=== PATIENT | male | born 1965 | race Caucasian/White ===

== ENCOUNTER 2022-06-19 07:33 | Emergency (ER) | payer OTHER ==
[~2022-06-19] VITALS: Ht 182.9 cm; Wt 84.1 kg
[~2022-06-19 07:33] MED LIST: OMEP20 PO
[2022-06-19] MEDS ORDERED: CEFTAROLINE 600 MG/D5W 250 ML IV ONE (09:00)
[2022-06-19 09:19] LABS: BASOPHILS % (AUTO) 0.8 % (0.0-2.0); EOSINOPHILS % (AUTO) 1.5 % (1.0-6.0); HEMATOCRIT 43.1 % (41-53); HEMOGLOBIN 14.9 g/dL (13.5-17.5); LYMPHOCYTES # (AUTO) 1.3 K/uL (1.0-4.8); MEAN CORPUSCULAR HEMOGLOBIN 33.2 pg (26.0-34.0); MEAN CORPUSCULAR HGB CONC 34.5 G/dL (31.0-37.0); MEAN CORPUSCULAR VOLUME 96 fL (80-100); MONOCYTES # (AUTO) 0.8 K/uL (0.1-1.0); MONOCYTES % (AUTO) 11.5 % (2.0-9.0); NEUTROPHILS # (AUTO) 4.8 K/uL (1.8-7.7); NEUTROPHILS % (AUTO) 68.2 % (40.0-70.0); PLATELET COUNT (AUTO) 251 K/uL (150-450); RED BLOOD CELL COUNT(AUTO) 4.48 MIL/uL (4.50-5.90); RED CELL DISTRIBUTION WIDTH 13.1 % (11.5-14.5)
[2022-06-19 09:29] LABS: ANION GAP 3 mmol/L (8-16); CALCIUM, TOTAL 9.5 mg/dL (8.8-10.5); CARBON DIOXIDE 31 mmol/L (22-29); CHLORIDE 101 mmol/L (98-107); CREATININE 1.06 mg/dL (0.60-1.30); GLUCOSE,RANDOM 104 mg/dL (70-110); POTASSIUM 3.8 mmol/L (3.5-5.1); SODIUM SERUM 135 mmol/L (136-145); UREA NITROGEN, BLOOD 17 mg/dL (7-18)
[2022-06-19 09:30] LABS: GLOMERULAR FILTR. RATE CALC > 60 mL/min (>60)
[2022-06-19 09:37] LABS: ALANINE AMINOTRANSFERASE 30 U/L (12-78); ALBUMIN 3.8 g/dL (3.4-5.0); ALKALINE PHOSPHATASE 58 U/L (46-116); ASPARTATE AMINOTRANSFERASE 24 U/L (15-37); BILIRUBIN,TOTAL 0.9 mg/dL (0.1-1.0)
[2022-06-19 09:52] VITALS: BP 128/69
[2022-06-19] MEDS ORDERED: SULF-261 PO (10:37)
[2022-06-19] MEDS ORDERED: CEPH-558 PO (10:37)
== END 2022-06-19 10:55 | disposition home or self-care (01) ==
LOC: EMS 07:37
DX: N48.22 Cellulitis of corpus cavernosum and penis (principal); Z98.890 Other specified postprocedural states; Z88.8 Allergy status to other drugs, medicaments and biological substances
CPT/HCPCS: 99283; 96365; 80053; 85025; 36415; J0712

== ENCOUNTER 2024-02-18 20:12 | Emergency (ER) | payer OTHER ==
[~2024-02-18] VITALS: Ht 182.9 cm; Wt 81.8 kg
[~2024-02-18 20:12] MED LIST changes: +CEPH-558 PO; +SULF-261 PO
[2024-02-18 20:19] VITALS: TEMP 97.3
[2024-02-18 22:52] LABS: BASOPHILS % (AUTO) 0.4 % (0.0-2.0); EOSINOPHILS % (AUTO) 2.6 % (1.0-6.0); HEMOGLOBIN 13.4 g/dL (13.5-17.5); LYMPHOCYTES # (AUTO) 1.9 K/uL (1.0-4.8); LYMPHOCYTES % (AUTO) 30.6 % (22.0-44.0); MEAN CORPUSCULAR HEMOGLOBIN 32.3 pg (26.0-34.0); MEAN CORPUSCULAR HGB CONC 33.5 G/dL (31.0-37.0); MEAN CORPUSCULAR VOLUME 97 fL (80-100); MONOCYTES # (AUTO) 0.8 K/uL (0.1-1.0); MONOCYTES % (AUTO) 12.4 % (2.0-9.0); NEUTROPHILS # (AUTO) 3.4 K/uL (1.8-7.7); PLATELET COUNT (AUTO) 208 K/uL (150-450); RED BLOOD CELL COUNT(AUTO) 4.15 MIL/uL (4.50-5.90); RED CELL DISTRIBUTION WIDTH 13.1 % (11.5-14.5); WHITE BLOOD COUNT (AUTO) 6.3 K/uL (4.5-11.0)
[2024-02-18 23:00] LABS: ANION GAP 6 mmol/L (8-16); CALCIUM, TOTAL 8.6 mg/dL (8.8-10.5); CARBON DIOXIDE 31 mmol/L (22-29); CHLORIDE 102 mmol/L (98-107); CREATININE 1.12 mg/dL (0.60-1.30); GLOMERULAR FILTR. RATE CALC > 60 mL/min (>60); GLUCOSE,RANDOM 92 mg/dL (70-110); POTASSIUM 4.2 mmol/L (3.5-5.1); SODIUM SERUM 139 mmol/L (136-145); UREA NITROGEN, BLOOD 17 mg/dL (7-18)
[2024-02-19] MEDS ORDERED: BACTDSB PO (00:50)
[2024-02-19] MEDS ORDERED: CEPH-558 PO (00:50)
[2024-02-19 01:37] VITALS: BP 105/60; PULSE 74; RESP 16
== END 2024-02-19 01:39 | disposition home or self-care (01) ==
LOC: EMS 20:12
DX: L73.9 Follicular disorder, unspecified (principal); Z88.1 Allergy status to other antibiotic agents
CPT/HCPCS: 80048; 85025; 99283

== ENCOUNTER 2024-05-16 10:19 | Emergency (ER) | payer OTHER ==
[~2024-05-16] VITALS: Ht 180.3 cm; Wt 84.1 kg
[~2024-05-16 10:19] MED LIST changes: +BACTDSB PO
[2024-05-16 10:25] VITALS: TEMP 98.6
[2024-05-16] MEDS ORDERED: AMOX-457 PO (12:01)
[2024-05-16 12:18] VITALS: BP 125/78; PULSE 85; RESP 18; O2SAT 99
== END 2024-05-16 12:19 | disposition home or self-care (01) ==
LOC: EMS 10:23
DX: H72.92 Unspecified perforation of tympanic membrane, left ear (principal); H92.02 Otalgia, left ear; Z88.1 Allergy status to other antibiotic agents
CPT/HCPCS: 99283; Z7502